=== PATIENT | female | born 1960 | race African-American/Black ===

== ENCOUNTER 2017-09-04 20:12 | Emergency (ER) | payer BC ==
[~2017-09-04] VITALS: Ht 167.6 cm; Wt 104.3 kg
[2017-09-04 20:36] VITALS: BP 169/96
[2017-09-04] MEDS ORDERED: IBUPROFEN 600 MG TABLET. PO ONE (21:30)
[2017-09-04] MEDS ORDERED: HYDR-971 PO (21:40)
--- NOTE | 2017-09-04 21:40 | PHYS DOC ---
Past Medical History Past Medical History: Hypertension Additional Past Medical Histor: BORDERLINE DM Past Surgical History: Alcohol Use: Occasionally Drug Use: None Adult General Chief Complaint Chief Complaint: FOOT INJURY PAIN HPI HPI Patient is a 56 year old female who presents with left foot pain. Patient states she was walking down 3 steps when she slide and twisted her left foot. Review of Systems Review of Systems Constitutional: Denies fever or chills [] Musculoskeletal: Left foot pain Integument: Denies rash or skin lesions [] Neurologic: Denies headache, focal weakness or sensory changes All other systems were reviewed and found to be within normal limits, except as documented in this note. Current Medications Current Medications Current Medications Medications (Trade) Dose Ordered Sig/Josh Start Time Stop Time Status Last Admin Dose Admin Ibuprofen (Motrin) 600 mg 1X ONCE 09/04/17 21:30 09/04/17 21:31 DC Allergies Allergies Allergies Coded Allergies Type Severity Reaction Last Updated Verified No Known Drug Allergies 09/04/17 No Physical Exam Physical Exam Constitutional: Well developed, well nourished, no acute distress, non-toxic appearance. [] Skin: Warm, dry, no erythema, no rash. [] Back: No tenderness, no CVA tenderness. [] Extremities: Left foot with mild soft tissue swelling on the lateral aspect. Tenderness on palpation of the base of the fifth metatarsal of the left foot. Full range of motion to the left toes. +2 left pedal pulse. Cap refill less than 2 seconds the left toes. Sensation intact to the left foot. Neurologic: Alert and oriented X 3, normal motor function, normal sensory function, no focal deficits noted. [] Psychologic: Affect normal, judgement normal, mood normal. [] Current Patient Data Vital Signs Vital Signs Date Time Temp Pulse Resp B/P (MAP) Pulse Ox O2 Delivery O2 Flow Rate FiO2 09/04/17 20:36 98.7 84 18 94 Room Air 98.7 EKG EKG [] Radiology/Procedures Radiology/Procedures [] Course & Med Decision Making Course & Med Decision Making Pertinent Labs and Imaging studies reviewed. (See chart for details) Patient is in the ED with left foot pain after twisting the foot today walking down some steps. Left foot x-rays interpreted by Dr. Soto were noted for fifth metatarsal fracture. Patient was placed in a posterior leg splint by the dietetic technician, neurovascular exam done by me is normal, cap refill less than 2 seconds. Ice elevation encouraged. Follow-up with orthopedic doctor by calling the office on Thursday. Belkys Disclaimer Belkys Disclaimer This electronic medical record was generated, in whole or in part, using a voice recognition dictation system. Departure Departure Impression: Primary Impression: Fracture of fifth metatarsal bone Disposition: HOME, SELF-CARE Condition: STABLE Referrals: NADINE TORRES MD (PCP) NAT AMADOR MD Call his office on Thursday and get a follow-up appointment Patient Instructions: Metatarsal Fracture with [facility] Additional Instructions: You were seen with left fifth metatarsal fracture. Ice and elevate the extremity. Contact the provided orthopedic doctor on Thursday morning and get a follow-up appointment. Do not bear weight on the affected extremity. Do not drive or operate machinery on the pain medicine. Scripts Hydrocodone/Apap 5-325 (NORCO 5-325 TABLET) 1 Each Tablet 1 TAB PO Q6-8HRS Y for PAIN, #20 TAB Prov: CHU CHINO APRN 09/04/17 Problem Qualifiers Primary Impression: Fracture of fifth metatarsal bone Encounter type: initial encounter Fracture type: closed Fracture alignment : nondisplaced Laterality: left Qualified Codes: S92.355A - Nondisplaced fracture of fifth metatarsal bone, left foot, initial encounter for closed fracture CHU CHINO APRN Sep 04, 2017 21:40
--- NOTE | 2017-09-05 08:31 | RAD ---
Left foot 3 views History: Pain, fell down steps 3 views were taken of the left foot. There is a nondisplaced fracture of the proximal left fifth metatarsal. No other fracture is noted. No other acute osseous abnormality is noted. Impression: 1. Nondisplaced fracture left fifth metatarsal.
== END 2017-09-04 21:43 | disposition home or self-care (01) ==
LOC: ER 20:12
DX: S92.355A Nondisplaced fracture of fifth metatarsal bone, left foot, initial encounter for closed fracture (principal); I10 Essential (primary) hypertension; X50.1XXA Overexertion from prolonged static or awkward postures, initial encounter; Y93.01 Activity, walking, marching and hiking; Y99.8 Other external cause status; Y92.89 Other specified places as the place of occurrence of the external cause
CPT/HCPCS: 29515; 73630; 99284-25

== ENCOUNTER 2017-12-25 07:06 | Emergency (ER) | payer BC ==
[2017-12-25] MEDS ORDERED: 0.9 % SODIUM CHLORIDE 10 ML DISP.SYRIN. IV (07:30)
[2017-12-25 07:34] LABS: ADD MAN DIFF? NO
[2017-12-25 07:36] LABS: BASO # 0.1 x10^3/uL (0.0-0.2); BASO % 1 % (0-3); EOS # 0.1 x10^3/uL (0.0-0.7); EOS % 1 % (0-3); HEMATOCRIT 42.2 % (36.0-47.0); HEMOGLOBIN 14.4 g/dL (12.0-15.5); LYMPH # 1.7 x10^3/uL (1.0-4.8); LYMPH % 26 % (24-48); MEAN CORPUSCULAR HEMOGLOBIN 32 pg (25-35); MEAN CORPUSCULAR HGB CONC 34 g/dL (31-37); MEAN CORPUSCULAR VOLUME 94 fL (79-100); MONO # 0.6 x10^3/uL (0.0-1.1); MONO % 9 % (0-9); NEUT # 4.1 x10^3uL (1.8-7.7); NEUT % 64 % (31-73); PLATELET COUNT 230 x10^3/uL (140-400); RED CELL DISTRIBUTION WIDTH 14.7 % (11.5-14.5); WHITE BLOOD COUNT 6.5 x10^3/uL (4.0-11.0)
[2017-12-25 07:38] LABS: BILIRUBIN,URINE NEGATIVE (NEG); CLARITY,URINE CLEAR; COLOR,URINE YELLOW; GLUCOSE,URINE NEGATIVE (NEG); NITRITE,URINE NEGATIVE (NEG); PROTEIN,URINE NEGATIVE (NEG-TRACE); UROBILINOGEN,URINE 0.2 mg/dL (0.2 mg/dL)
[2017-12-25 07:42] LABS: SQUAMOUS EPITHELIAL CELL,UR MANY /LPF
[2017-12-25 07:44] LABS: BACTERIA,URINE MODERATE /HPF (0-FEW); RBC,URINE OCC /HPF (0-2); WBC,URINE OCC /HPF (0-4)
[2017-12-25 07:47] LABS: ANION GAP 8 (6-14); BLOOD UREA NITROGEN 11 mg/dL (7-20); CALCIUM 9.5 mg/dL (8.5-10.1); CARBON DIOXIDE 29 mmol/L (21-32); CHLORIDE 100 mmol/L (98-107); CREATININE 0.9 mg/dL (0.6-1.0); GFR 77.8; GLUCOSE 153 mg/dL (70-99); POTASSIUM 3.7 mmol/L (3.5-5.1); SODIUM 137 mmol/L (136-145)
[2017-12-25 07:53] LABS: ALK PHOS 61 U/L (46-116); ALT (SGPT) 36 U/L (14-59); AST (SGOT) 19 U/L (15-37); LIPASE 127 U/L (73-393); TOTAL BILIRUBIN 0.6 mg/dL (0.2-1.0)
[2017-12-25 07:56] LABS: TROPONINI < 0.017 ng/mL (0.000-0.055)
[2017-12-25] MEDS: ONDANSETRON PF 4 MG/2 ML VIAL. IV (08:00)
[2017-12-25 08:01] LABS: CKMB INDEX 0.8 % (0-4); CREATINE KINASE 126 U/L (26-192)
[2017-12-25 08:05] LABS: DIRECT BILIRUBIN 0.1 mg/dL (0.0-0.2)
[2017-12-25] MEDS: IV NORMAL SALINE 1000ML BAG 1,000 ML IV (08:16)
== END 2017-12-25 09:00 | disposition home or self-care (01) ==
LOC: ER 07:06
DX: K80.20 Calculus of gallbladder without cholecystitis without obstruction (principal); I10 Essential (primary) hypertension; F17.210 Nicotine dependence, cigarettes, uncomplicated
CPT/HCPCS: 36415; 76705; 80048; 80076; 81001; 82553; 83690; 84484; 85025; 87086; 93005; 96360; 99285-25; J7030

== ENCOUNTER → 2018-01-18 | Outpatient (CLI) | payer BC | END | disposition home or self-care (01) | LOC: KCIC MRI 09:19 | DX: S83.001A Unspecified subluxation of right patella, initial encounter (principal); M94.261 Chondromalacia, right knee; X58.XXXA Exposure to other specified factors, initial encounter; Y93.89 Activity, other specified; Y92.89 Other specified places as the place of occurrence of the external cause; Y99.8 Other external cause status | CPT/HCPCS: 73721 ==